=== PATIENT | female | born 1990 | race Caucasian/White ===

== ENCOUNTER 2024-02-25 16:37 | Emergency (ER) | payer BC ==
[~2024-02-25] VITALS: Ht 172.7 cm; Wt 59.0 kg
[2024-02-25 16:54] VITALS: TEMP 98
[2024-02-25 17:23] LABS: BASOPHILS # (AUTO) 0.1 (0.0-0.1); BASOPHILS % 0.8 % (0.0-1.0); EOSINOPHILS # (AUTO) 0.1 (0.0-0.4); EOSINOPHILS % 1.3 % (0.0-6.0); HEMATOCRIT 38.7 % (34.2-44.1); LYMPHOCYTES # (AUTO) 2.2 (1.0-3.2); LYMPHOCYTES % 34.3 % (18.0-39.1); MEAN CORPUSCULAR HEMOGLOBIN 30.7 pg (28-32); MEAN CORPUSCULAR HGB CONC 33.6 g/dL (31-35); MEAN CORPUSCULAR VOLUME 91.5 fL (81-99); MONOCYTES # (AUTO) 0.4 (0.2-0.8); MONOCYTES % 6.2 % (4.4-11.3); NEUTROPHILS # (AUTO) 3.6 (2.1-6.9); NEUTROPHILS % 57.2 % (38.7-80.0); PLATELET COUNT 241 x10e3/uL (140-360); RED BLOOD COUNT 4.23 x10e6/uL (3.6-5.1); RED CELL DISTRIBUTION WIDTH 12.1 % (11.7-14.4)
[2024-02-25 17:34] LABS: INR 1.03
[2024-02-25 17:35] LABS: PARTIAL THROMBOPLASTIN TIME 25.8 seconds (23.8-35.5)
[2024-02-25 17:44] LABS: ALANINE AMINOTRANSFERASE 10 IU/L (0-55); ALBUMIN 4.3 g/dL (3.5-5.0); ALBUMIN/GLOBULIN RATIO 1.6 (0.8-2.0); ALKALINE PHOSPHATASE 51 IU/L (40-150); ANION GAP 12.1 mmol/L (8-16); BILIRUBIN,TOTAL 0.5 mg/dL (0.2-1.2); BLOOD UREA NITROGEN 15 mg/dL (7-26); BUN/CREATININE RATIO 18 (6-25); CALCIUM 9.4 mg/dL (8.4-10.2); CARBON DIOXIDE 26 mmol/L (22-29); CHLORIDE 105 mmol/L (98-107); CREATININE, SERUM 0.85 mg/dL (0.57-1.11); EST GLOMERULAR FILTRATION RATE 92 ML/MIN (>=60); GLUCOSE 114 mg/dL (74-118); LIPASE 25 U/L (8-78); POTASSIUM 4.1 mmol/L (3.5-5.1); SODIUM 139 mmol/L (136-145)
[2024-02-25 17:49] LABS: CLARITY,URINE CLOUDY (CLEAR); COLOR,URINE BROWN (YELLOW); LEUKOCYTE ESTERASE ,URINE NEGATIVE (NEGATIVE); PH,URINE 5.5 (5 - 7)
[2024-02-25 17:50] LABS: BILIRUBIN,URINE SMALL (NEGATIVE); GLUCOSE, URINE NEGATIVE (NEGATIVE); KETONES,URINE TRACE (NEGATIVE); NITRITE,URINE NEGATIVE (NEGATIVE); PROTEIN,URINE DIPSTICK 2+ (NEGATIVE); URINE UROBILINOGEN 0.2 mg/dL (0.2 - 1)
[2024-02-25] MEDS: SODIUM CHLORIDE 0.9% 1000ML 1,000 ML IV STA (17:54)
[2024-02-25] MEDS ORDERED: IOPAMIDOL 370 MG/ML 100 ML INFUS..BTL INJ ONE (18:00)
[2024-02-25 18:07] LABS: AMORPHOUS SEDIMENT,URINE FEW (FEW); BACTERIA,URINE FEW /HPF; EPITHELIAL CELLS,URINE FEW /LPF; RBC,URINE >50 /HPF (0-5)
[2024-02-25] MEDS ORDERED: ONDANSETRON ODT4 MG PO (19:01)
[2024-02-25] MEDS ORDERED: FLOMAX0.4 MG PO (19:01)
[2024-02-25] MEDS ORDERED: ACETAMINOPHEN-1 EAC4 PO (19:01)
[2024-02-25 19:04] VITALS: PULSE 71; RESP 18; O2SAT 100
[2024-02-25] MEDS: ONDANSETRON HCL INJ 2MG/ML 2ML 2 MG/ML VIAL IV STA (19:12)
[2024-02-25] MEDS: KETOROLAC TROMETHAMINE 30 MG/ML VIAL IV STA (19:12)
== END 2024-02-25 19:20 | disposition home or self-care (01) ==
LOC: ER 16:56
DX: R10.11 Right upper quadrant pain (principal); F41.9 Anxiety disorder, unspecified; F32.A Depression, unspecified; N20.0 Calculus of kidney
CPT/HCPCS: 36415; 74177; 80053; 81001; 83690; 84702; 85025; 85610; 85730; 87086; 99284; J7030; Q9967; J1885

== ENCOUNTER 2024-03-24 07:46 | Inpatient (IN) | payer BC ==
[~2024-03-24] VITALS: Ht 172.7 cm; Wt 59.0 kg
[~2024-03-24 07:46] MED LIST: ACETAMINOPHEN-1 EAC4 PO; FLOMAX0.4 MG PO; ONDANSETRON ODT4 MG PO
[2024-03-24 07:49] VITALS: PULSE 83; RESP 19; TEMP 97.8
[2024-03-24] MEDS: SODIUM CHLORIDE 0.9% 1000ML 1,000 ML IV STA (08:02)
[2024-03-24] MEDS: ONDANSETRON HCL INJ 2MG/ML 2ML 2 MG/ML VIAL IV STA (08:03)
[2024-03-24] MEDS: KETOROLAC TROMETHAMINE 30 MG/ML VIAL IV STA (08:03)
[2024-03-24 08:07] LABS: BASOPHILS % 0.7 % (0.0-1.0); EOSINOPHILS # (AUTO) 0.1 (0.0-0.4); EOSINOPHILS % 1.4 % (0.0-6.0); HEMATOCRIT 37.5 % (34.2-44.1); HEMOGLOBIN 12.4 g/dL (12.0-16.0); LYMPHOCYTES % 36.1 % (18.0-39.1); MEAN CORPUSCULAR HEMOGLOBIN 30.8 pg (28-32); MEAN CORPUSCULAR HGB CONC 33.1 g/dL (31-35); MEAN CORPUSCULAR VOLUME 93.1 fL (81-99); MONOCYTES # (AUTO) 0.5 (0.2-0.8); MONOCYTES % 8.4 % (4.4-11.3); NEUTROPHILS % 53.2 % (38.7-80.0); PLATELET COUNT 260 x10e3/uL (140-360); RED BLOOD COUNT 4.03 x10e6/uL (3.6-5.1); RED CELL DISTRIBUTION WIDTH 12.1 % (11.7-14.4); WHITE BLOOD COUNT 5.62 x10e3/uL (4.8-10.8)
[2024-03-24 08:12] LABS: INR 0.99; PROTHROMBIN TIME 13.6 seconds (11.9-14.5)
[2024-03-24 08:13] LABS: PARTIAL THROMBOPLASTIN TIME 27.5 seconds (23.8-35.5)
[2024-03-24 08:20] LABS: ALANINE AMINOTRANSFERASE 13 IU/L (0-55); ALBUMIN 4.2 g/dL (3.5-5.0); ALBUMIN/GLOBULIN RATIO 1.6 (0.8-2.0); ALKALINE PHOSPHATASE 50 IU/L (40-150); ANION GAP 16.5 mmol/L (8-16); BILIRUBIN,TOTAL 0.5 mg/dL (0.2-1.2); BLOOD UREA NITROGEN 13 mg/dL (7-26); BUN/CREATININE RATIO 15 (6-25); CALCIUM 9.6 mg/dL (8.4-10.2); CARBON DIOXIDE 22 mmol/L (22-29); CHLORIDE 107 mmol/L (98-107); CREATININE, SERUM 0.89 mg/dL (0.57-1.11); EST GLOMERULAR FILTRATION RATE 87 ML/MIN (>=60); GLUCOSE 105 mg/dL (74-118); POTASSIUM 3.5 mmol/L (3.5-5.1); SODIUM 142 mmol/L (136-145); TOTAL PROTEIN 6.8 g/dL (6.5-8.1)
[2024-03-24] MEDS: HYDROMORPHONE 1MG/1ML INJ IV STA (08:40)
[2024-03-24 09:39] LABS: CLARITY,URINE CLEAR (CLEAR); COLOR,URINE YELLOW (YELLOW); GLUCOSE, URINE NEGATIVE (NEGATIVE); KETONES,URINE 1+ (NEGATIVE); LEUKOCYTE ESTERASE ,URINE NEGATIVE (NEGATIVE); NITRITE,URINE NEGATIVE (NEGATIVE); PH,URINE 7.5 (5 - 7); PROTEIN,URINE DIPSTICK TRACE (NEGATIVE); URINE UROBILINOGEN 0.2 mg/dL (0.2 - 1)
[2024-03-24 09:40] LABS: BACTERIA,URINE FEW /HPF; BILIRUBIN,URINE NEGATIVE (NEGATIVE); CALCIUM OXALATE CRYSTALS,UR FEW (FEW); EPITHELIAL CELLS,URINE FEW /LPF; RBC,URINE >50 /HPF (0-5); WBC,URINE (MAN) 0-5 /HPF (0-5)
[2024-03-24] MEDS: SODIUM CHLORIDE 0.9% 1000ML 1,000 ML IV SCH (10:27)
[2024-03-24 11:35] VITALS: BP 111/72; PULSE 78; RESP 17; TEMP 97.6; O2SAT 100
[2024-03-24] MEDS: HYDROMORPHONE 1MG/1ML INJ IV PRN (14:47)
[2024-03-24 16:00] VITALS: BP 98/61; PULSE 71; RESP 18; TEMP 97.9; O2SAT 100
[2024-03-24] MEDS ORDERED: PAXIL10 MG PO (19:59)
[2024-03-24] MEDS ORDERED: LAMICTAL5 MG PO (19:59)
[2024-03-24] MEDS ORDERED: PAXIL40 MG PO (19:59)
[2024-03-24 20:00] VITALS: BP 99/69; PULSE 67; RESP 18; TEMP 97.7; O2SAT 100
[2024-03-24 21:00] VITALS: BP 99/69; PULSE 67; RESP 18; TEMP 97.7; O2SAT 100
[2024-03-24] MEDS: LAMOTRIGINE 25 MG TAB PO SCH (21:00)
[2024-03-24] MEDS: PAROXETINE HCL 20 MG TAB PO SCH ×2 (21:00)
[2024-03-24 23:50] VITALS: BP 113/73; PULSE 65; RESP 18; TEMP 98.2; O2SAT 99
[2024-03-25] VITALS (8 sets, daily range): BP systolic 100–129; BP diastolic 58–80; PULSE 60–76; RESP 18–20; TEMP 97.8–98.1; O2SAT 98–100
[2024-03-25 05:44] LABS: BASOPHILS % 0.4 % (0.0-1.0); EOSINOPHILS # (AUTO) 0.2 (0.0-0.4); EOSINOPHILS % 2.2 % (0.0-6.0); HEMATOCRIT 33.3 % (34.2-44.1); HEMOGLOBIN 10.5 g/dL (12.0-16.0); LYMPHOCYTES # (AUTO) 3.1 (1.0-3.2); LYMPHOCYTES % 37.5 % (18.0-39.1); MEAN CORPUSCULAR HEMOGLOBIN 31.1 pg (28-32); MEAN CORPUSCULAR HGB CONC 31.5 g/dL (31-35); MEAN CORPUSCULAR VOLUME 98.5 fL (81-99); MONOCYTES # (AUTO) 0.7 (0.2-0.8); MONOCYTES % 8.8 % (4.4-11.3); NEUTROPHILS # (AUTO) 4.3 (2.1-6.9); NEUTROPHILS % 50.9 % (38.7-80.0); PLATELET COUNT 206 x10e3/uL (140-360); RED BLOOD COUNT 3.38 x10e6/uL (3.6-5.1); RED CELL DISTRIBUTION WIDTH 12.1 % (11.7-14.4); WHITE BLOOD COUNT 8.33 x10e3/uL (4.8-10.8)
[2024-03-25 06:29] LABS: ALBUMIN/GLOBULIN RATIO 1.4 (0.8-2.0); ANION GAP 9.8 mmol/L (8-16); BILIRUBIN,TOTAL 0.2 mg/dL (0.2-1.2); CALCIUM 8.5 mg/dL (8.4-10.2); CREATININE, SERUM 0.72 mg/dL (0.57-1.11); POTASSIUM 3.8 mmol/L (3.5-5.1); TOTAL PROTEIN 5.2 g/dL (6.5-8.1)
[2024-03-25] MEDS: KETOROLAC TROMETHAMINE 30 MG/ML VIAL IV PRN (17:25)
[2024-03-25] MEDS: ONDANSETRON HCL INJ 2MG/ML 2ML 2 MG/ML VIAL IV PRN (17:28)
[2024-03-25] MEDS: METOCLOPRAMIDE HCL 10 MG/2ML VIAL IV PRN (18:49)
[2024-03-26] VITALS (9 sets, daily range): BP systolic 102–128; BP diastolic 61–86; PULSE 62–89; RESP 17–20; TEMP 97.5–98.4; O2SAT 97–100
[2024-03-26] MEDS ORDERED: LIDOCAINE HCL 2% LOCAL INJ 5 ML SDV VIAL INJ ONE (11:43)
[2024-03-26] MEDS ORDERED: ONDANSETRON HCL INJ 2MG/ML 2ML 2 MG/ML VIAL ONE (11:43)
[2024-03-26] MEDS ORDERED: CEFTRIAXONE 1 GM VIAL ONE (11:43)
[2024-03-26] MEDS ORDERED: SEVOFLURANE INHAL SOLN 250 ML PEN BTL ONE (11:43)
[2024-03-26] MEDS ORDERED: DEXAMETHASONE SOD PHOS INJ 4 MG/ML SDV ONE (11:43)
[2024-03-26] MEDS ORDERED: ACETAMINOPHEN 1000 MG/100 ML IV ONE (11:43)
[2024-03-26] MEDS ORDERED: PROPOFOL IV EMULSION 10 MG/ML 20 ML VIAL ONE (11:43)
[2024-03-26] MEDS ORDERED: IOPAMIDOL 610MG/1ML 300 MG/ML VIAL IV ONE (12:16)
[2024-03-26] MEDS: MEPERIDINE HCL INJ 25 MG/ML VIAL ONE (14:28)
[2024-03-26] MEDS ORDERED: HYDROMORPHONE 1MG/1ML INJ IV PRN (18:30)
[2024-03-26] MEDS: METOCLOPRAMIDE HCL 10 MG/2ML VIAL IV ONE (20:23)
[2024-03-26] MEDS: SODIUM CHLORIDE 0.9% 1000ML 1,000 ML IV SCH (21:03)
[2024-03-27] VITALS: BP 114/78; PULSE 76; RESP 18; TEMP 98.6; O2SAT 100
[2024-03-27] MEDS: HYDROMORPHONE 1MG/1ML INJ IV PRN (00:39)
[2024-03-27 06:00] VITALS: BP 121/83; PULSE 59; RESP 18; TEMP 98.3; O2SAT 99
[2024-03-27 08:28] VITALS: BP 125/83; PULSE 61; RESP 17; TEMP 98.1; O2SAT 99
[2024-03-27 08:34] VITALS: BP 125/83; PULSE 61; RESP 17; TEMP 98.1; O2SAT 99
[2024-03-28] MEDS ORDERED: KETOROLAC TROME10 MG PO (20:06)
[2024-03-28] MEDS ORDERED: ONDANSETRON ODT4 MG SL (20:06)
[2024-03-28] MEDS ORDERED: ACETAMINOPHEN-1 EAC4 PO (20:06)
== END 2024-03-27 10:03 | disposition home or self-care (01) | DRG 661 ==
LOC: ER 07:50 → ERHOLD 09:20 → MED/SURG2 10:41 → OBSVTOIN 03-26 10:30
PROVIDERS: ADMIT Family Medicine; ATTEND Family Medicine
PROC: BT161ZZ Fluoroscopy of Right Ureter using Low Osmolar Contrast (ICD-10-PCS; 2024-03-26)
PROC: 0T768DZ Dilation of Right Ureter with Intraluminal Device, Via Natural or Artificial Opening Endoscopic (ICD-10-PCS; principal; 2024-03-26 13:02)
PROC: 0TC68ZZ Extirpation of Matter from Right Ureter, Via Natural or Artificial Opening Endoscopic (ICD-10-PCS; 2024-03-26 13:02)
DX: N13.2 Hydronephrosis with renal and ureteral calculous obstruction (principal); N23 Unspecified renal colic; F41.9 Anxiety disorder, unspecified; F32.A Depression, unspecified; N94.6 Dysmenorrhea, unspecified; Z88.1 Allergy status to other antibiotic agents
CPT/HCPCS: 36415; 74176; 74420; 80053; 81001; 84702; 85025; 85610; 85730; 87086; 88300; 99284; C1758; C1766; C2617; G0378; J0696; J1100; J1171; J1885; J2003; J2175; J2405; J2765; J7030

== ENCOUNTER 2024-03-28 17:35 | Emergency (ER) | payer BC ==
[~2024-03-28] VITALS: Ht 172.7 cm; Wt 59.0 kg
[~2024-03-28 17:35] MED LIST changes: +LAMICTAL5 MG PO; +PAXIL10 MG PO; +PAXIL40 MG PO
[2024-03-28 17:40] VITALS: TEMP 98.7
[2024-03-28 18:03] LABS: BASOPHILS % 0.4 % (0.0-1.0); EOSINOPHILS # (AUTO) 0.1 (0.0-0.4); EOSINOPHILS % 1.1 % (0.0-6.0); LYMPHOCYTES # (AUTO) 2.7 (1.0-3.2); LYMPHOCYTES % 26.9 % (18.0-39.1); MEAN CORPUSCULAR HEMOGLOBIN 30.8 pg (28-32); MEAN CORPUSCULAR HGB CONC 33.3 g/dL (31-35); MEAN CORPUSCULAR VOLUME 92.3 fL (81-99); MONOCYTES # (AUTO) 0.6 (0.2-0.8); MONOCYTES % 6.1 % (4.4-11.3); NEUTROPHILS # (AUTO) 6.6 (2.1-6.9); NEUTROPHILS % 65.2 % (38.7-80.0); PLATELET COUNT 233 x10e3/uL (140-360); RED CELL DISTRIBUTION WIDTH 12.1 % (11.7-14.4); WHITE BLOOD COUNT 10.11 x10e3/uL (4.8-10.8)
[2024-03-28] MEDS: SODIUM CHLORIDE 0.9% 1000ML 1,000 ML IV ONE (18:04)
[2024-03-28] MEDS: KETOROLAC TROMETHAMINE 30 MG/ML VIAL IV ONE (18:04)
[2024-03-28] MEDS: ONDANSETRON HCL INJ 2MG/ML 2ML 2 MG/ML VIAL IV ONE (18:05)
[2024-03-28 18:22] LABS: ALBUMIN/GLOBULIN RATIO 1.4 (0.8-2.0); ANION GAP 11.2 mmol/L (8-16); BILIRUBIN,TOTAL 0.5 mg/dL (0.2-1.2); CALCIUM 9.8 mg/dL (8.4-10.2); CREATININE, SERUM 0.75 mg/dL (0.57-1.11); TOTAL PROTEIN 6.9 g/dL (6.5-8.1)
[2024-03-28 18:25] LABS: POTASSIUM 3.2 mmol/L (3.5-5.1)
[2024-03-28 18:45] LABS: CLARITY,URINE CLOUDY (CLEAR); COLOR,URINE RED (YELLOW); LEUKOCYTE ESTERASE ,URINE NEGATIVE (NEGATIVE); PH,URINE 8.5 (5 - 7)
[2024-03-28 18:46] LABS: BILIRUBIN,URINE 1+ (NEGATIVE); GLUCOSE, URINE NEGATIVE (NEGATIVE); KETONES,URINE 2+ (NEGATIVE); NITRITE,URINE NEGATIVE (NEGATIVE); PROTEIN,URINE DIPSTICK 2+ (NEGATIVE); URINE UROBILINOGEN 0.2 mg/dL (0.2 - 1)
[2024-03-28 19:01] LABS: BACTERIA,URINE FEW /HPF; EPITHELIAL CELLS,URINE FEW /LPF; RBC,URINE >50 /HPF (0-5); WBC,URINE (MAN) 0-5 /HPF (0-5)
[2024-03-28 20:00] VITALS: PULSE 58; RESP 16; O2SAT 100
[2024-03-28] MEDS ORDERED: ACETAMINOPHEN-1 EAC4 PO (20:06)
[2024-03-28] MEDS ORDERED: KETOROLAC TROME10 MG PO (20:06)
[2024-03-28] MEDS ORDERED: ONDANSETRON ODT4 MG SL (20:06)
== END 2024-03-28 20:20 | disposition home or self-care (01) ==
LOC: ER 17:50
DX: R10.30 Lower abdominal pain, unspecified (principal); N20.2 Calculus of kidney with calculus of ureter; G40.909 Epilepsy, unspecified, not intractable, without status epilepticus; K21.9 Gastro-esophageal reflux disease without esophagitis; F41.9 Anxiety disorder, unspecified; F32.A Depression, unspecified
CPT/HCPCS: 36415; 74176; 80053; 81001; 84702; 85025; 87086; 99284; J1885; J2405; J7030